=== PATIENT | male | born 1975 | race Caucasian/White ===

== ENCOUNTER 2023-01-06 13:42 | Emergency (ER) | payer MEDICAID ==
[~2023-01-06] VITALS: Ht 172.7 cm; Wt 77.0 kg
[2023-01-06 14:33] VITALS: BP 117/68
--- NOTE | 2023-01-06 16:29 | NUR ---
ULTRASOUND AT BEDSIDE
== END 2023-01-06 17:06 | disposition home or self-care (01) ==
LOC: ER 13:43
DX: N50.89 Other specified disorders of the male genital organs (principal); N43.3 Hydrocele, unspecified
CPT/HCPCS: 76870; 93976; 99284

== ENCOUNTER 2024-01-01 23:57 | Emergency (ER) | payer MEDICAID ==
[~2024-01-01] VITALS: Ht 172.7 cm; Wt 74.5 kg
[2024-01-02] MEDS: LIDOcaine 2% Viscous 15ml cup MM ONE (02:39)
[2024-01-02] MEDS: propofol 10mg/ml 20ml vial IV ONE (02:39)
[2024-01-02 05:50] VITALS: BP 112/68; PULSE 62; RESP 22; TEMP 98.7; O2SAT 98
== END 2024-01-02 05:53 | disposition home or self-care (01) ==
LOC: ER 23:58
DX: T18.5XXA Foreign body in anus and rectum, initial encounter (principal); W44.8XXA Other foreign body entering into or through a natural orifice, initial encounter; Y93.89 Activity, other specified; Y92.89 Other specified places as the place of occurrence of the external cause; Y99.8 Other external cause status
CPT/HCPCS: 74018; 94760; 99152; 99153; 99285; A4620